=== PATIENT | male | born 1945 | race Caucasian/White ===

== ENCOUNTER 2019-09-02 06:36 | Emergency (ER) | payer OTHER ==
[2019-09-02] MEDS ORDERED: TETANUS & DIPHTHERIA TOX,ADULT 0.5 ML VIAL ONE (06:45)
--- NOTE | 2019-09-02 07:32 | ER ---
Nurse's Notes [facility] Name: Ten Hodge Age: 74 yrs Sex: Male : 1945 Arrival Date: 09/02/2019 Time: 06:37 Bed 5 Private MD: Diagnosis: Laceration without foreign body of left thumb without damage to nail Presentation: 09/02 06:36 Presenting complaint: Patient states: that yesterday at 1000 he was trying to cut fc something with a knife and cut his left thumb. He thought it would stop bleeding but it has not even with pressure dressing. Transition of care: patient was not received from another setting of care. Complicating Factors: There are no complicating factors for this patient. Onset of symptoms was September 01, 2019 at 10:00. Risk Assessment: Do you want to hurt yourself or someone else? Patient reports no desire to harm self or others. Initial Sepsis Screen:. Care prior to arrival: Bleeding of injury controlled. Injury dressed. 06:36 Method Of Arrival: Ambulatory fc 06:36 Acuity: HO 4 fc 07:00 Initial Sepsis Screen: Does the patient meet any 2 criteria? No. Patient's initial jl7 sepsis screen is negative. Does the patient have a suspected source of infection? No. Patient's initial sepsis screen is negative. Historical: - Allergies: 06:56 Exelon; fc - Home Meds: 06:56 omeprazole 20 mg Oral cpDR 1 cap once daily [Active]; calcium citrate 250 mg calcium fc Oral tab 630 mg twice a day [Active]; levothyroxine 137 mcg tab 1 tab once daily [Active]; metoprolol tartrate 50 mg oral tab 1 tab 2 times per day [Active]; aspirin 81 mg Oral chew 1 tab once daily [Active]; donepezil 10 mg Oral tab 1 tab once daily [Active]; bumetanide 1 mg Oral tab 3 tabs once daily [Active]; ferrous gluconate 324 mg (36 mg iron) Oral tab twice a day [Active]; amlodipine 10 mg tab 1 tab once daily [Active]; atorvastatin 80 mg Oral tab 1 tab once daily [Active]; bumetanide 1 mg Oral tab 2 tabs nightly [Active]; - PMHx: 06:56 cardiac arrest; COPD; High Cholesterol; Hypertension; Diabetes - IDDM; Myocardial fc infarction; Hypothyroidism; RENAL FAILURE; GERD; - PSHx: 06:56 penile pump; Knee surgery; Appendectomy; left foot; Quad bypass; fc - Immunization history:: Last tetanus immunization: unknown. - Social history:: Smoking status: Patient/guardian denies using tobacco, Patient/guardian denies using alcohol, street drugs. - Ebola Screening: : Patient negative for fever greater than or equal to 101.5 degrees Fahrenheit, and additional compatible Ebola Virus Disease symptoms Patient denies exposure to infectious person Patient denies travel to an Ebola-affected area in the 21 days before illness onset. Screenin:40 Abuse screen: Denies threats or abuse. Nutritional screening: No deficits noted. fc Tuberculosis screening: No symptoms or risk factors identified. Fall Risk None identified. Assessment: 06:53 General: Appears in no apparent distress. Behavior is calm, cooperative. Pain: ak1 Complains of pain in palmar aspect of distal phalanx of left thumb. Neuro: Level of Consciousness is awake, alert, obeys commands, Oriented to person, place, situation, Gait is steady, Speech is normal. Cardiovascular: No deficits noted. Respiratory: Airway is patent Respiratory effort is even, unlabored. GI: No signs and/or symptoms were reported involving the gastrointestinal system. : No signs and/or symptoms were reported regarding the genitourinary system. EENT: No signs and/or symptoms were reported regarding the EENT system. Derm: Wound noted palmar aspect of distal phalanx of left thumb. Musculoskeletal: Range of motion: intact in all extremities. Injury Description: Laceration is clean, bleeding moderately, bleeding if no dressing is applied. was sustained 12-24 hours ago. 07:05 Reassessment: Patient appears in no apparent distress at this time. Patient and/or ch family updated on plan of care and expected duration. Pain level reassessed. Patient is alert, oriented x 3, equal unlabored respirations, skin warm/dry/pink. 07:25 Reassessment: pressure dressing removed, per ROGER Klein verbal order. No bleeding jl7 noted. Vital Signs: 06:36 Weight 77.11 kg (R); Height 5 ft. 10 in. (177.80 cm) (R); Pain 3/10; fc 06:53 BP 129 / 65; Pulse 54; Resp 16; Temp 97.6(TE); Pulse Ox 99% on R/A; ak1 07:25 BP 111 / 64; Pulse 56; Resp 16 S; Pulse Ox 100% on R/A; Pain 0/10; jl7 06:36 Body Mass Index 24.39 (77.11 kg, 177.80 cm) ED Course: 06:36 Arm band placed on Patient placed in an exam room, on a stretcher. 06:37 Patient arrived in ED. ds1 06:38 Ernie Cook NP is PHCP. pm1 06:38 Andi Jacobs MD is Attending Physician. pm1 06:40 Patient has correct armband on for positive identification. Bed in low position. Call light in reach. Side rails up X 1. Pulse ox on. NIBP on. 06:47 Triage completed. 06:55 Wound care: to laceration located on left thumb was cleaned with Hibiclens, irrigated rr5 with normal saline, dressed with steri strip. 07:00 Virgil Buck RN is Primary Nurse. 7 07:36 No provider procedures requiring assistance completed. Patient did not have IV access jl7 during this emergency room visit. Administered Medications: 07:00 Drug: Tetanus-Diphtheria Toxoid Adult 0.5 ml {Mathematics Academic Chair: AFAR. Exp: rr5 04/05/2021. Lot #: [id number]. } Route: IM; Site: right deltoid; 07:15 Follow up: Response: No adverse reaction jl7 Outcome: 07:31 Discharge ordered by MD. pm1 07:36 Discharged to home ambulatory. jl7 07:36 Condition: stable 07:36 Discharge instructions given to patient, Instructed on discharge instructions, follow up and referral plans. medication usage, wound care, Demonstrated understanding of instructions, follow-up care, medications, wound care. 07:39 Patient left the ED. jl7 Signatures: Karma Cortez, [place] RN Yessica Palacios RN RN Mary Peace ds1 Harriet Alamo RN RN ak1 Ernie Cook, ROGER PRINCIPAL SYSTEM SOFTWARE ENGINEER pm1 Virgil Buck RN RN jl7 Sukumar Melton RN RN rr5 Corrections: (The following items were deleted from the chart) 07:38 07:05 Karma Cortez RN is Primary Nurse. [facility]7 07:38 07:37 Virgil Buck RN is Primary Nurse. jl7 jl7
--- NOTE | 2019-09-02 07:33 | EDPHYS ---
Physician Documentation [facility] Name: Ten Hodge Age: 74 yrs Sex: Male : 1945 Arrival Date: 09/02/2019 Time: 06:37 Bed 5 Private MD: Andi Art HPI: 09/02 07:06 This 74 yrs old Male presents to ER via Ambulatory with complaints of pm1 Laceration - Thumb. 07:06 The patient or guardian reports a laceration. The complaints affect the left thumb. pm1 Context: The problem was sustained at home, resulted from cutting food. Onset: The symptoms/episode began/occurred yesterday morning at 1000. Modifying factors: The symptoms are alleviated by pressure to area, the symptoms are aggravated by changing dressing. Associated signs and symptoms: Pertinent negatives: cyanosis distally, decreased sensation distally, fever, numbness distally, tingling distally. Patient was cutting food yesterday morning around 1000 and he accidentally cut his left thumb. Patient thought the bleeding would have stopped by now. Pressure dressing with Coban at home works but when he changes the dressing it starts bleeding again. Historical: - Allergies: 06:56 Exelon; fc - Home Meds: 06:56 omeprazole 20 mg Oral cpDR 1 cap once daily [Active]; calcium citrate 250 mg calcium fc Oral tab 630 mg twice a day [Active]; levothyroxine 137 mcg tab 1 tab once daily [Active]; metoprolol tartrate 50 mg oral tab 1 tab 2 times per day [Active]; aspirin 81 mg Oral chew 1 tab once daily [Active]; donepezil 10 mg Oral tab 1 tab once daily [Active]; bumetanide 1 mg Oral tab 3 tabs once daily [Active]; ferrous gluconate 324 mg (36 mg iron) Oral tab twice a day [Active]; amlodipine 10 mg tab 1 tab once daily [Active]; atorvastatin 80 mg Oral tab 1 tab once daily [Active]; bumetanide 1 mg Oral tab 2 tabs nightly [Active]; - PMHx: 06:56 cardiac arrest; COPD; High Cholesterol; Hypertension; Diabetes - IDDM; Myocardial fc infarction; Hypothyroidism; RENAL FAILURE; GERD; - PSHx: 06:56 penile pump; Knee surgery; Appendectomy; left foot; Quad bypass; fc - Immunization history:: Last tetanus immunization: unknown. - Social history:: Smoking status: Patient/guardian denies using tobacco, Patient/guardian denies using alcohol, street drugs. - Ebola Screening: : Patient negative for fever greater than or equal to 101.5 degrees Fahrenheit, and additional compatible Ebola Virus Disease symptoms Patient denies exposure to infectious person Patient denies travel to an Ebola-affected area in the 21 days before illness onset. ROS: 07:06 Constitutional: Negative for fever, chills, and weight loss, Cardiovascular: Negative pm1 for chest pain, palpitations, and edema, Respiratory: Negative for shortness of breath, cough, wheezing, and pleuritic chest pain, Back: Negative for injury and pain, MS/Extremity: Negative for injury and deformity. 07:06 Neuro: Negative for headache, weakness, numbness, tingling, and seizure. 07:06 Skin: Positive for laceration(s), of the left thumb. Exam: 07:06 Constitutional: This is a well developed, well nourished patient who is awake, alert, pm1 and in no acute distress. Head/Face: Normocephalic, atraumatic. Neck: Trachea midline, no thyromegaly or masses palpated, and no cervical lymphadenopathy. Supple, full range of motion without nuchal rigidity, or vertebral point tenderness. No Meningismus. Chest/axilla: Normal chest wall appearance and motion. Nontender with no deformity. No lesions are appreciated. Cardiovascular: Regular rate and rhythm with a normal S1 and S2. No gallops, murmurs, or rubs. Normal PMI, no JVD. No pulse deficits. Respiratory: Lungs have equal breath sounds bilaterally, clear to auscultation and percussion. No rales, rhonchi or wheezes noted. No increased work of breathing, no retractions or nasal flaring. Back: No spinal tenderness. No costovertebral tenderness. Full range of motion. 07:06 Skin: Appearance: normal except for affected area, injury, laceration(s), the wound is approximately 1 cm(s), with a depth of 0.25 cm(s), of the medial aspect of left thumb. 07:06 Neuro: Orientation: is normal, Motor: moves all fours, Sensation: is normal, no obvious gross deficits, Gait: is steady, at a normal pace, without difficulty. Vital Signs: 06:36 Weight 77.11 kg (R); Height 5 ft. 10 in. (177.80 cm) (R); Pain 3/10; fc 06:53 BP 129 / 65; Pulse 54; Resp 16; Temp 97.6(TE); Pulse Ox 99% on R/A; ak1 07:25 BP 111 / 64; Pulse 56; Resp 16 S; Pulse Ox 100% on R/A; Pain 0/10; jl7 06:36 Body Mass Index 24.39 (77.11 kg, 177.80 cm) fc MDM: 06:44 Patient medically screened. pm1 07:29 Data reviewed: vital signs. Data interpreted: Pulse oximetry: on room air is 99 %. pm1 Interpretation: normal. Counseling: I had a detailed discussion with the patient and/or guardian regarding: the historical points, exam findings, and any diagnostic results supporting the discharge/admit diagnosis, the need for outpatient follow up, to return to the emergency department if symptoms worsen or persist or if there are any questions or concerns that arise at home. 07:29 ED course: Laceration is too old to repair due to risk for infection. Flexible pm1 Steri-Strip stopped the bleeding. 09/02 06:45 Order name: Wound Care; Complete Time: 07:04 pm1 Administered Medications: 07:00 Drug: Tetanus-Diphtheria Toxoid Adult 0.5 ml {Master Carpenter: Hele Massage. Exp: rr5 04/05/2021. Lot #: [id number]. } Route: IM; Site: right deltoid; 07:15 Follow up: Response: No adverse reaction jl7 Disposition: 09/02/19 07:31 Discharged to Home. Impression: Laceration without foreign body of left thumb without damage to nail. - Condition is Stable. - Discharge Instructions: Nonsutured Laceration Care. - Prescriptions for Keflex 500 mg Oral Capsule - take 1 capsule by ORAL route every 12 hours for 10 days; 20 capsule. - Medication Reconciliation Form, Thank You Letter, Antibiotic Education, Prescription Opioid Use form. - Follow up: Emergency Department; When: As needed; Reason: Worsening of condition. Follow up: Private Physician; When: 2 - 3 days; Reason: Recheck today's complaints, Continuance of care, Re-evaluation by your physician. - Problem is new. - Symptoms have improved. Addendum: 09/03/2019 07:57 Co-signature as Attending Physician, Andi Jacobs MD I agree with the assessment and c paula plan of care. Signatures: Andi Jacobs MD MD cha Chretien, Felicia, RN RN Ernie Moura, MYCOLOGY TEACHER MYCOLOGY TEACHER pm1 Virgil Buck RN RN jl7 Sukumar Melton RN RN rr5 Corrections: (The following items were deleted from the chart) 09/02 07:39 07:31 09/02/2019 07:31 Discharged to Home. Impression: Laceration without foreign body jl7 of left thumb without damage to nail. Condition is Stable. Forms are Medication Reconciliation Form, Thank You Letter, Antibiotic Education, Prescription Opioid Use. Follow up: Emergency Department; When: As needed; Reason: Worsening of condition. Follow up: Private Physician; When: 2 - 3 days; Reason: Recheck today's complaints, Continuance of care, Re-evaluation by your physician. Problem is new. Symptoms have improved. pm1
[2019-09-02 07:48] VITALS: TEMP 97.6
[2019-09-02 07:49] VITALS: BP 111/64; O2SAT 100
== END 2019-09-02 07:39 | disposition home or self-care (01) ==
LOC: ER 06:36
DX: S61.012A Laceration without foreign body of left thumb without damage to nail, initial encounter (principal); W26.0XXA Contact with knife, initial encounter; Y93.9 Activity, unspecified; Y92.9 Unspecified place or not applicable; Z23 Encounter for immunization
CPT/HCPCS: 90471; 90714; 99284

== ENCOUNTER 2020-08-20 16:59 | Emergency (ER) | payer OTHER ==
--- OUTSIDE RECORDS SUMMARY | 2020-08-20 17:01 | XMS REPORT | Continuity of Care Document ---
:1945 Author Organization [facility] t Address [address] [place] [address] [address] [place] [address] Care Team Providers Name Role Phone Terence Hernandez MD Attending Clinician Problems This patient has no known problems. Allergies, Adverse Reactions, Alerts This patient has no known allergies or adverse reactions. Medications This patient has no known medications. Procedures This patient has no known procedures. Encounters Start End Encounter Admission Attending Care Care Encounter Source Date/Time Date/Time Type Type Clinicians Facility Department ID 2019-11-30 2019-11-30 Office ROBBIN Hernandez [id number] 08:52:00 09:25:16 Visit [facility] [id number] Surgical [id number] Specialti [id number] [address] Results This patient has no known results.
[2020-08-20 17:58] LABS: Absolute Lymphocytes (CBC) 1.1 K/uL (0.7-4.9); Basophils % 0.9 % (0-1.3); Hematocrit 30.9 % (39.6-49.0); Lymphocytes % 18.2 % (15.3-44.8); MPV 8.2 fL (7.6-11.3); RBC Red Blood Cell Count 3.29 M/uL (4.33-5.43)
[2020-08-20 18:00] LABS: Arterial Blood Carboxyhemoglob 1.5 % (0-1.5); Blood Gas Oxyhemoglobin 89.5 % (94-97)
[2020-08-20] MEDS ORDERED: NA CHLORIDE 0.9% 1,000 ML ONE (18:08)
[2020-08-20] MEDS ORDERED: INSULIN -REGULAR HUMAN 50 UNIT/0.5 ML ML ONE ×2 (18:08→19:40)
[2020-08-20 18:23] LABS: Potassium 4.5 mmol/L (3.5-5.1)
[2020-08-20 20:26] LABS: Urine Blood TRACE (NEG); Urine Glucose 2+ (NEG); Urine Protein NEGATIVE (NEG); Urine pH 5.5 (5.0-7.0)
--- NOTE | 2020-08-20 20:47 | ER ---
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 Took a total 50 units insulin since last night, and has not eaten much today. Woke up this morning feeling bad, dizzy, nauseous. Feeling better right now. No complains of pain, N/V at this time. BGL 460 in triage. Coronavirus screen: Client denies travel out of the [place] in the last 14 days. nausea, Client presents with at least one sign or symptom that may indicate coronavirus-19. Standard/surgical mask placed on the client. Provider contacted for isolation considerations. The client reports previous COVID testing was negative. Date of collection: July 2020. Ebola Screen: Patient negative for fever greater than or equal to 101.5 degrees Fahrenheit, and additional compatible Ebola Virus Disease symptoms Patient denies exposure to infectious person. Patient denies travel to an Ebola-affected area in the 21 days before illness onset. No symptoms or risks identified at this time. Initial Sepsis Screen: Does the patient meet any 2 criteria? No. Patient's initial sepsis screen is negative. Does the patient have a suspected source of infection? No. Patient's initial sepsis screen is negative. Risk Assessment: Do you want to hurt yourself or someone else? Patient reports no desire to harm self or others. Onset of symptoms was August 20, 2020. 17:14 Method Of Arrival: Ambulatory ca1 17:14 Acuity: HO 3 ca1 Historical: - Allergies: 17:25 Exelon; ca1 - Home Meds: 17:25 amlodipine 10 mg tab 1 tab once daily [Active]; aspirin 81 mg Oral chew 1 tab once ca1 daily [Active]; donepezil 10 mg Oral tab 1 tab once daily [Active]; atorvastatin 80 mg Oral tab 1 tab once daily [Active]; bumetanide 1 mg Oral tab 3 tabs once daily [Active]; bumetanide 1 mg Oral tab 2 tabs nightly [Active]; calcium citrate 250 mg calcium Oral tab 630 mg twice a day [Active]; ferrous gluconate 10 gm Oral tab twice a day [Active]; Lisinopril Oral [Active]; levothyroxine 137 mcg tab 1 tab once daily [Active]; metoprolol tartrate 50 mg Oral tab 1 tab 2 times per day [Active]; omeprazole 20 mg Oral cpDR 1 cap once daily [Active]; divalproex oral 7500mg oral [Active]; fluoxetine 20 mg Oral cap [Active]; insulin Pump [Active]; Humulin R 100 unit/mL Sub-Q soln [Active]; - PMHx: 17:25 cardiac arrest; COPD; Diabetes - IDDM; GERD; High Cholesterol; Hypertension; ca1 Hypothyroidism; Myocardial infarction; RENAL FAILURE; - PSHx: 17:25 penile pump; Knee surgery; Appendectomy; left foot; Quad bypass; back surgery; ca1 - Immunization history:: Adult Immunizations up to date, Pneumococcal vaccine is up to date, Flu vaccine is up to date. - Social history:: Smoking status: Patient/guardian denies using tobacco, the patient reports quitting approximately 12 years ago. Screenin:30 Abuse screen: Denies threats or abuse. Nutritional screening: No deficits noted. aa5 Tuberculosis screening: No symptoms or risk factors identified. Fall Risk None identified. Assessment: 17:30 General: Appears comfortable, Behavior is calm, cooperative. Pain: Denies pain. Neuro: aa5 Level of Consciousness is awake, alert, obeys commands, Oriented to person, place, time, situation. Cardiovascular: Heart tones S1 S2 present Rhythm is regular. Respiratory: Airway is patent Respiratory effort is even, unlabored, Respiratory pattern is regular, symmetrical. GI: Abdomen is round non-distended, Bowel sounds present X 4 quads. Abd is soft and non tender X 4 quads. : No signs and/or symptoms were reported regarding the genitourinary system. EENT: No signs and/or symptoms were reported regarding the EENT system. Derm: Skin is pink, warm \T\ dry. Musculoskeletal: Range of motion: intact in all extremities. 18:55 Reassessment: Patient is alert, oriented x 3, equal unlabored respirations, skin aa5 warm/dry/pink. Patient denies pain at this time. Pt sitting up in bed. Awaiting disposition. . 19:28 General: Appears comfortable, Behavior is calm, cooperative. Pain: Denies pain. Neuro: rv Level of Consciousness is awake, alert, obeys commands, Oriented to person, place, time, situation. Cardiovascular: Rhythm is sinus bradycardia. Respiratory: Airway is patent Respiratory effort is even, unlabored, Respiratory pattern is regular, Breath sounds are clear bilaterally. 20:37 Reassessment: Patient appears in no apparent distress at this time. Patient and/or mg2 family updated on plan of care and expected duration. Pain level reassessed. Patient is alert, oriented x 3, equal unlabored respirations, skin warm/dry/pink. Vital Signs: 17:14 BP 144 / 67; Pulse 59; Resp 16 S; Temp 97.1(TE); Pulse Ox 96% on R/A; Weight 77.11 kg ca1 (R); Height 5 ft. 10 in. (177.80 cm) (R); Pain 0/10; 19:28 BP 116 / 61; Pulse 51; Resp 15; Pulse Ox 96% on R/A; rv 20:37 BP 119 / 65; Pulse 54; Resp 18; Pulse Ox 97% on R/A; mg2 17:14 Body Mass Index 24.39 (77.11 kg, 177.80 cm) ca1 ED Course: 17:01 Patient arrived in ED. as 17:19 Triage completed. ca1 17:25 Arm band placed on right wrist. ca1 17:30 Riky Wellington PA is PHCP. m 17:30 Andi Jacobs MD is Attending Physician. [facility] 17:30 Antonia Gibson, RN is Primary Nurse. aa5 17:30 Patient has correct armband on for positive identification. Placed in gown. Bed in low aa5 position. Call light in reach. Side rails up X2. Adult w/ patient. Pulse ox on. NIBP on. 17:45 Initial lab(s) drawn, by me, sent to lab. Inserted saline lock: 20 gauge in right aa5 forearm, using aseptic technique. Blood collected. 18:58 Report given to [place] Cam[place]. aa5 19:49 Primary Nurse role handed off by Antonia Gibson, [place] ll2 20:03 Marquise Delcid RN is Primary Nurse. rv 20:50 No provider procedures requiring assistance completed. IV discontinued, intact, rv bleeding controlled, No redness/swelling at site. Pressure dressing applied. Administered Medications: 18:09 Drug: NS 0.9% 1000 ml Route: IV; Rate: 1 bolus; Site: right forearm; aa5 19:43 Follow up: IV Status: Completed infusion; IV Intake: 1000ml rv 18:09 Drug: Insulin Regular Human 10 units {Co-Signature: aa5 (Antonia Gibson RN).} Route: iw IVP; Site: right forearm; 19:43 Follow up: Response: Medication administered at discharge. rv 18:09 Drug: Insulin Regular Human 10 units {Co-Signature: aa5 (Antonia Gibson RN).} Route: iw Sub-Q; Site: right lower abdomen; 19:43 Follow up: Response: No adverse reaction; Blood sugar is lowered rv 19:30 Drug: Insulin Regular Human 10 units {Co-Signature: mg2 (Amilcar Jimenez RN).} Route: rv IVP; Site: right wrist; 20:12 Follow up: Response: No adverse reaction; Blood sugar is lowered mg2 Point of Care Testing: Blood Glucose: 18:54 Blood Glucose: 338 mg/dL; aa5 18:54 PA notified of decreased FSBG aa5 Ranges: Intake: 19:43 IV: 1000ml; Total: 1000ml. rv Outcome: 20:47 Discharge ordered by . [facility] 20:50 Discharged to home ambulatory, with family. rv 20:50 Condition: improved 20:50 Discharge instructions given to patient, Instructed on discharge instructions, follow up and referral plans. Demonstrated understanding of instructions, follow-up care. 20:55 Discharge ordered by MD. [facility] 20:58 Patient left the ED. rv Signatures: Riky Wellington, PA PA Nolvia Simeon Irene RN Antonia Mendoza RN RN aa5 Amilcar Jimenez RN RN mg2 Marquise Delcid RN [place] rv Giulia Pollack RN [place] [facility] Yue Gallardo RN RN ll2 Antonia Gibson RN aa5 Amilcar Jimenez RN mg2 Corrections: (The following items were deleted from the chart) 19:29 19:28 Cardiovascular: Rhythm is sinus rhythm rv rv
--- NOTE | 2020-08-20 20:47 | EDPHYS ---
Physician Documentation [facility] Name: Ten Hodge Age: 75 yrs Sex: Male : 1945 Arrival Date: 08/20/2020 Time: 17:01 Bed 5 Private MD: ED Physician Andi Jacobs HPI: 08/20 17:32 This 75 yrs old Male presents to ER via Ambulatory with complaints of High jmm Blood Sugar. 17:32 The patient or guardian reports hyperglycemia. Onset: The symptoms/episode jmm began/occurred last night. Associated signs and symptoms: Pertinent negatives: urinary incontinence, vomiting. This is a 75 year old male with a history of DM,GERD, CAD that presents to the ED with complaints of hyperglycemia which he noticed after not feeling well last night. Patient states he had dinner at a steakhouse earlier in the day. Denies vomiting. Patient has taken 50 units of insulin sub q without relief. . Historical: - Allergies: 17:25 Exelon; ca1 - Home Meds: 17:25 amlodipine 10 mg tab 1 tab once daily [Active]; aspirin 81 mg Oral chew 1 tab once ca1 daily [Active]; donepezil 10 mg Oral tab 1 tab once daily [Active]; atorvastatin 80 mg Oral tab 1 tab once daily [Active]; bumetanide 1 mg Oral tab 3 tabs once daily [Active]; bumetanide 1 mg Oral tab 2 tabs nightly [Active]; calcium citrate 250 mg calcium Oral tab 630 mg twice a day [Active]; ferrous gluconate 10 gm Oral tab twice a day [Active]; Lisinopril Oral [Active]; levothyroxine 137 mcg tab 1 tab once daily [Active]; metoprolol tartrate 50 mg Oral tab 1 tab 2 times per day [Active]; omeprazole 20 mg Oral cpDR 1 cap once daily [Active]; divalproex oral 7500mg oral [Active]; fluoxetine 20 mg Oral cap [Active]; insulin Pump [Active]; Humulin R 100 unit/mL Sub-Q soln [Active]; - PMHx: 17:25 cardiac arrest; COPD; Diabetes - IDDM; GERD; High Cholesterol; Hypertension; ca1 Hypothyroidism; Myocardial infarction; RENAL FAILURE; - PSHx: 17:25 penile pump; Knee surgery; Appendectomy; left foot; Quad bypass; back surgery; ca1 - Immunization history:: Adult Immunizations up to date, Pneumococcal vaccine is up to date, Flu vaccine is up to date. - Social history:: Smoking status: Patient/guardian denies using tobacco, the patient reports quitting approximately 12 years ago. ROS: 17:32 Cardiovascular: Negative for chest pain, palpitations, and edema, Respiratory: Negative jmm for shortness of breath, cough, wheezing, and pleuritic chest pain, Neuro: Negative for headache, weakness, numbness, tingling, and seizure. 17:32 Constitutional: Positive for fatigue. 17:32 All other systems are negative. Exam: 17:32 Constitutional: This is a well developed, well nourished patient who is awake, alert, jmm and in no acute distress. Head/Face: atraumatic. Eyes: EOMI, no conjunctival erythema appreciated ENT: Moist Mucus Membranes Neck: Trachea midline, Supple Chest/axilla: Normal chest wall appearance and motion. Cardiovascular: Regular rate and rhythm. No edema appreciated Respiratory: Normal respirations, no respiratory distress appreciated Abdomen/GI: Non distended, soft Back: Normal ROM Skin: General appearance color normal MS/ Extremity: Moves all extremities, no obvious deformities appreciated, no edema noted to the lower extremities Neuro: Awake and alert, normal gait Psych: Behavior is normal, Mood is normal, Patient is cooperative and pleasant Vital Signs: 17:14 BP 144 / 67; Pulse 59; Resp 16 S; Temp 97.1(TE); Pulse Ox 96% on R/A; Weight 77.11 kg ca1 (R); Height 5 ft. 10 in. (177.80 cm) (R); Pain 0/10; 19:28 BP 116 / 61; Pulse 51; Resp 15; Pulse Ox 96% on R/A; rv 20:37 BP 119 / 65; Pulse 54; Resp 18; Pulse Ox 97% on R/A; mg2 17:14 Body Mass Index 24.39 (77.11 kg, 177.80 cm) ca1 MDM: 17:33 Patient medically screened. lisa 20:46 Data reviewed: vital signs, nurses notes. Counseling: I had a detailed discussion with jojo the patient and/or guardian regarding: the historical points, exam findings, and any diagnostic results supporting the discharge/admit diagnosis, lab results, the need for outpatient follow up, to return to the emergency department if symptoms worsen or persist or if there are any questions or concerns that arise at home. 20:52 Data reviewed: lab test result(s). [facility] 08/20 17:26 Order name: Glucose, Ancillary Testing; Complete Time: 17:32 EDMS 08/20 17:34 Order name: CBC with Diff; Complete Time: 18:09 [facility] 08/20 17:34 Order name: BMP; Complete Time: 18:53 [facility] 08/20 17:34 Order name: ABG; Complete Time: 18:31 [facility] 08/20 18:09 Order name: Glucose, Ancillary Testing; Complete Time: 18:09 EDMS 08/20 18:29 Order name: Urine Dipstick--Ancillary (enter results); Complete Time: 20:46 08/20 17:34 Order name: Urine Dipstick-Ancillary (obtain specimen); Complete Time: 18:17 [facility] 08/20 19:06 Order name: Glucose, Ancillary Testing; Complete Time: 19:11 EDMS 08/20 19:56 Order name: Glucose Level; Complete Time: 20:12 [facility] 08/20 20:18 Order name: Glucose, Ancillary Testing; Complete Time: 20:46 EDMS Administered Medications: 18:09 Drug: NS 0.9% 1000 ml Route: IV; Rate: 1 bolus; Site: right forearm; aa5 19:43 Follow up: IV Status: Completed infusion; IV Intake: 1000ml rv 18:09 Drug: Insulin Regular Human 10 units {Co-Signature: aa5 (Antonia Gibson RN).} Route: iw IVP; Site: right forearm; 19:43 Follow up: Response: Medication administered at discharge. rv 18:09 Drug: Insulin Regular Human 10 units {Co-Signature: aa5 (Antonia Gibson RN).} Route: iw Sub-Q; Site: right lower abdomen; 19:43 Follow up: Response: No adverse reaction; Blood sugar is lowered rv 19:30 Drug: Insulin Regular Human 10 units {Co-Signature: mg2 (Amilcar Jimenez RN).} Route: rv IVP; Site: right wrist; 20:12 Follow up: Response: No adverse reaction; Blood sugar is lowered mg2 Point of Care Testing: Blood Glucose: 18:54 Blood Glucose: 338 mg/dL; aa5 18:54 PA notified of decreased FSBG aa5 Ranges: Critical Glucose Levels:Adult <50 mg/dl or >400 mg/dl <40 mg/dl or >180 mg/dl Disposition: 08/21 10:47 Co-signature as Attending Physician, Andi Jacobs MD I agree with the assessment and lisa plan of care. Disposition: 08/20/20 20:55 Discharged to Home. Impression: Hyperglycemia, unspecified. - Condition is Stable. - Discharge Instructions: Hyperglycemia. - Medication Reconciliation Form, Thank You Letter, Antibiotic Education, Prescription Opioid Use form. - Follow up: Private Physician; When: 2 - 3 days; Reason: Recheck today's complaints, Continuance of care, Re-evaluation by your physician. Signatures: Dispatcher [employer] EDAndi Higgins MD MD cha Mickail, Joel, PA PA jmm Williams, Irene, RN [place] iw Antonia Gibson RN RN aa5 Marquise Delcid RN RN rv [place], [place] Platt RN, Michele RN mg2 Antonia Gibson RN aa5 Amilcar Jimenez RN mg2 Corrections: (The following items were deleted from the chart) 08/20 20:50 20:47 08/20/2020 20:47 Discharged to Home. Impression: Hyperglycemia, unspecified. rv Condition is Stable. Forms are Medication Reconciliation Form, Thank You Letter, Antibiotic Education, Prescription Opioid Use. Follow up: Private Physician; When: 2 - 3 days; Reason: Recheck today's complaints, Continuance of care, Re-evaluation by your physician. [facility] 20:58 20:55 08/20/2020 20:55 Discharged to Home. Impression: Hyperglycemia, unspecified. rv Condition is Stable. Discharge Instructions: Hyperglycemia. Forms are Medication Reconciliation Form, Thank You Letter, Antibiotic Education, Prescription Opioid Use. Follow up: Private Physician; When: 2 - 3 days; Reason: Recheck today's complaints, Continuance of care, Re-evaluation by your physician. [facility]
[2020-08-20 21:27] VITALS: TEMP 97.1
[2020-08-20 21:30] VITALS: BP 119/65; O2SAT 97
== END 2020-08-20 20:58 | disposition home or self-care (01) ==
LOC: ER 16:59
DX: E11.22 Type 2 diabetes mellitus with diabetic chronic kidney disease (principal); E11.65 Type 2 diabetes mellitus with hyperglycemia; I12.9 Hypertensive chronic kidney disease with stage 1 through stage 4 chronic kidney disease, or unspecified chronic kidney disease; N18.9 Chronic kidney disease, unspecified; J44.9 Chronic obstructive pulmonary disease, unspecified; I25.2 Old myocardial infarction; Z79.4 Long term (current) use of insulin; Z88.8 Allergy status to other drugs, medicaments and biological substances; Z96.41 Presence of insulin pump (external) (internal); Z79.82 Long term (current) use of aspirin
CPT/HCPCS: 85025; 80048; 36415; 82947 ×4; 81003; 82805; 96372; 99284; J7030

== ENCOUNTER 2020-08-21 08:04 | Observation (INO) | payer OTHER ==
[2020-08-21] MEDS ORDERED: INSULIN -REGULAR HUMAN 50 UNIT/0.5 ML ML ONE ×4 (09:00→15:50)
[2020-08-21 09:04] LABS: Potassium 5.3 mmol/L (3.5-5.1)
--- OUTSIDE RECORDS SUMMARY | 2020-08-21 09:21 | XMS REPORT | Continuity of Care Document ---
:1945 Author Organization [facility] t Address [address] [place] [address] [address] [place] [address] Care Team Providers Name Role Phone Terence [...] Department ID 2019-11-30 2019-11-30 Office ROBBIN Hernandez [phone] [id number] 08:52:00 09:25:16 Visit [facility] [id number] Surgical [id number] Specialti [id number] [address] Results This patient has no known results.
[2020-08-21] MEDS ORDERED: NA CHLORIDE 0.9% 500 ML ONE (09:50)
--- NOTE | 2020-08-21 11:41 | EDPHYS ---
Physician Documentation [facility] Name: Ten Hodge Age: 75 yrs Sex: Male : 1945 Arrival Date: 08/21/2020 Time: 08:06 Bed 4 Private MD: ED Physician Francis Martinez HPI: 08/21 10:08 This 75 yrs old Male presents to ER via Ambulatory with complaints of High kdr Blood Sugar. 10:08 The patient or guardian reports hyperglycemia, that was potentially precipitated by no kdr particular event. Onset: The symptoms/episode began/occurred this morning. Associated signs and symptoms: Pertinent positives: None. Pertinent negatives: constipation, decreased urine output, diaphoresis, diarrhea, dry skin, hair loss, ketones in urine, nausea, polydipsia, polyphagia. Current symptoms: In the emergency department the patient's symptoms are unchanged from the initial presentation, despite home interventions, despite EMS interventions. The patient has experienced similar episodes in the past, a few times, The patient was in the ED last night for the same problem. The patient has been recently seen at the [facility] Emergency Department, lat night. Historical: - Allergies: 08:22 Exelon; iw - Home Meds: 08: amlodipine 10 mg tab 1 tab once daily [Active]; aspirin 81 mg Oral chew 1 tab once iw daily [Active]; atorvastatin 80 mg Oral tab 1 tab once daily [Active]; bumetanide 1 mg Oral tab 3 tabs once daily [Active]; bumetanide 1 mg Oral tab 2 tabs nightly [Active]; calcium citrate 250 mg calcium Oral tab 630 mg twice a day [Active]; divalproex 7500mg Oral [Active]; donepezil 10 mg Oral tab 1 tab once daily [Active]; ferrous gluconate 10 gm Oral tab twice a day [Active]; fluoxetine 20 mg Oral cap [Active]; Humulin R 100 unit/mL soln [Active]; Insulin pump [Active]; levothyroxine 137 mcg tab 1 tab once daily [Active]; lisinopril Oral [Active]; metoprolol tartrate 50 mg Oral tab 1 tab 2 times per day [Active]; omeprazole 20 mg Oral cpDR 1 cap once daily [Active]; - PMHx: 08:22 cardiac arrest; COPD; Diabetes - IDDM; GERD; High Cholesterol; Hypertension; iw Hypothyroidism; Myocardial infarction; RENAL FAILURE; - PSHx: 08:22 penile pump; Knee surgery; Appendectomy; left foot; Quad bypass; back surgery; iw - Immunization history:: Adult Immunizations up to date. - Social history:: Smoking status: unknown. ROS: 10:10 Constitutional: Negative for fever, chills, and weight loss, Eyes: Negative for injury, kdr pain, redness, and discharge, ENT: Negative for injury, pain, and discharge, Neck: Negative for injury, pain, and swelling, Cardiovascular: Negative for chest pain, palpitations, and edema, Respiratory: Negative for shortness of breath, cough, wheezing, and pleuritic chest pain, Abdomen/GI: Negative for abdominal pain, nausea, vomiting, diarrhea, and constipation, Back: Negative for injury and pain, : Negative for injury, bleeding, discharge, and swelling, MS/Extremity: Negative for injury and deformity, Skin: Negative for injury, rash, and discoloration, Neuro: Negative for headache, weakness, numbness, tingling, and seizure activity. Psych: Negative for depression, anxiety, suicide ideation, homicidal ideation, and hallucinations, Allergy/Immunology: Negative for hives, rash, and allergies, Hematologic/Lymphatic: Negative for swollen nodes, abnormal bleeding, and unusual bruising. 10:10 Endocrine: Positive for Hyperglycemia. Exam: 10:11 Constitutional: This is a well developed, well nourished patient who is awake, alert, kdr and in no acute distress. Head/Face: Normocephalic, atraumatic. Eyes: Pupils equal round and reactive to light, extra-ocular motions intact. Lids and lashes normal. Conjunctiva and sclera are non-icteric and not injected. Cornea within normal limits. Periorbital areas with no swelling, redness, or edema. Neck: Trachea midline, no thyromegaly or masses palpated, and no cervical lymphadenopathy. Supple, full range of motion without nuchal rigidity, or vertebral point tenderness. No Meningismus. Chest/axilla: Normal chest wall appearance and motion. Nontender with no deformity. No lesions are appreciated. Cardiovascular: Regular rate and rhythm with a normal S1 and S2. No gallops, murmurs, or rubs. Normal PMI, no JVD. No pulse deficits. Respiratory: Lungs have equal breath sounds bilaterally, clear to auscultation and percussion. No rales, rhonchi or wheezes noted. No increased work of breathing, no retractions or nasal flaring. Abdomen/GI: Soft, non-tender, with normal bowel sounds. No distension or tympany. No guarding or rebound. No evidence of tenderness throughout. Back: No spinal tenderness. No costovertebral tenderness. Full range of motion. Skin: Warm, dry with normal turgor. Normal color with no rashes, no lesions, and no evidence of cellulitis. MS/ Extremity: Pulses equal, no cyanosis. Neurovascular intact. Full, normal range of motion. Neuro: Awake and alert, GCS 15, oriented to person, place, time, and situation. Cranial nerves II-XII grossly intact. Motor strength 5/5 in all extremities. Sensory grossly intact. Cerebellar exam normal. Normal gait. Psych: Awake, alert, with orientation to person, place and time. Behavior, mood, and affect are within normal limits. Vital Signs: 08:18 BP 137 / 67; Pulse 56; Resp 16; Temp 97.5; Pulse Ox 98% on R/A; iw 11:35 BP 129 / 61; Pulse 54; Resp 17; Pulse Ox 100% ; jl7 12:22 BP 124 / 62; Pulse 52; Resp 15; Pulse Ox 98% ; jl7 MDM: 11:40 Patient medically screened. kdr 11:40 Data reviewed: vital signs, nurses notes, lab test result(s). Counseling: I had a kdr detailed discussion with the patient and/or guardian regarding: the historical points, exam findings, and any diagnostic results supporting the discharge/admit diagnosis, lab results, the need for further work-up and treatment in the hospital. 08/21 08:19 Order name: Chem 7; Complete Time: 09:24 kdr 08/21 08:28 Order name: Glucose, Ancillary Testing; Complete Time: 09:24 EDMS 08/21 09:44 Order name: Glucose, Ancillary Testing; Complete Time: 09:54 EDMS 08/21 10:44 Order name: Glucose, Ancillary Testing EDMS 08/21 11:56 Order name: CBC with Automated Diff EDMS 08/21 11:56 Order name: CBC with Automated Diff EDMS 08/21 11:56 Order name: Comprehensive Metabolic Panel EDMS 08/21 11:56 Order name: Comprehensive Metabolic Panel EDMS 08/21 12:05 Order name: Glucose, Ancillary Testing EDMS 08/21 15:26 Order name: Glucose, Ancillary Testing EDMS 08/21 11:56 Order name: CONS Pharmacy Consult EDMS 08/21 11:56 Order name: Consistent Carb (ADA) [address]in EDMS Administered Medications: 08:47 Drug: Insulin Regular Human 10 units {Co-Signature: jl7 (Virgil Buck RN).} Route: IVP; iw Site: left hand; 09:43 Drug: Insulin Regular Human 10 units {Co-Signature: jl7 (Virgil Buck RN).} Route: IVP; iw Site: left hand; 09:43 Drug: NS 0.9% 500 ml Route: IV; Rate: bolus; Site: left hand; iw 11:08 Drug: Insulin Regular Human 6 units {Co-Signature: aa5 (Antonia Gibson RN).} Route: iw IVP; Site: left hand; 15:43 Not Given (Patient Refused): Insulin Regular Human 8 units Sub-Q once iw Disposition: 08/21/20 11:40 Hospitalization ordered by Pema Saleh for Observation. Preliminary diagnosis is Hyperglycemia, unspecified - Failed outpatient treatment. - Bed requested for Telemetry/MedSurg (observation). - Status is Observation. iw - Condition is Fair. - Problem is an ongoing problem. - Symptoms have improved. Signatures: Dispatcher [employer] EDAR Francis Martinez MD MD [facility] Geni Ramírez RN RN iw Faraz Arana em1 Virgil Buck RN jl7 Antonia Gibson RN aa5 Corrections: (The following items were deleted from the chart) 13:49 11:40 Hospitalization Ordered by Pema Saleh MD for Observation. Preliminary em1 diagnosis is Hyperglycemia, unspecified - Failed outpatient treatment. Bed requested for Telemetry/MedSurg (observation). Status is Observation. Condition is Fair. Problem is an ongoing problem. Symptoms have improved. kdr 15:43 13:49 08/21/2020 11:40 Hospitalization Ordered by Pema Saleh MD for Observation. iw Preliminary diagnosis is Hyperglycemia, unspecified - Failed outpatient treatment. Bed requested for Telemetry/MedSurg (observation). Status is Observation. Condition is Fair. Problem is an ongoing problem. Symptoms have improved. em1
--- NOTE | 2020-08-21 11:41 | ER ---
Nurse's Notes [facility] Name: Ten Hodge Age: 75 yrs Sex: Male : 1945 Arrival Date: 08/21/2020 Time: 08:06 Bed 4 Private MD: Diagnosis: Hyperglycemia, unspecified-Failed outpatient treatment Presentation: 08/21 08:18 Chief complaint: Patient states: was seen here last night for high blood sugar, was iw given insulin and sent home, he only ate a small amount last night and now his blood sugar is high again. Coronavirus screen: At this time, the client does not indicate any symptoms associated with coronavirus-19. Ebola Screen: Patient negative for fever greater than or equal to 101.5 degrees Fahrenheit, and additional compatible Ebola Virus Disease symptoms Patient denies exposure to infectious person. Patient denies travel to an Ebola-affected area in the 21 days before illness onset. No symptoms or risks identified at this time. Initial Sepsis Screen: Does the patient meet any 2 criteria? No. Patient's initial sepsis screen is negative. Does the patient have a suspected source of infection? No. Patient's initial sepsis screen is negative. Risk Assessment: Do you want to hurt yourself or someone else? Patient reports no desire to harm self or others. Onset of symptoms was August 21, 2020. 08:18 Method Of Arrival: Ambulatory iw 08:18 Acuity: HO 3 iw Historical: - Allergies: 08: Exelon; iw - Home Meds: 08:22 amlodipine 10 mg tab 1 tab once daily [Active]; aspirin 81 mg Oral chew 1 tab once iw daily [Active]; atorvastatin 80 mg Oral tab 1 tab once daily [Active]; bumetanide 1 mg Oral tab 3 tabs once daily [Active]; bumetanide 1 mg Oral tab 2 tabs nightly [Active]; calcium citrate 250 mg calcium Oral tab 630 mg twice a day [Active]; divalproex 7500mg Oral [Active]; donepezil 10 mg Oral tab 1 tab once daily [Active]; ferrous gluconate 10 gm Oral tab twice a day [Active]; fluoxetine 20 mg Oral cap [Active]; Humulin R 100 unit/mL soln [Active]; Insulin pump [Active]; levothyroxine 137 mcg tab 1 tab once daily [Active]; lisinopril Oral [Active]; metoprolol tartrate 50 mg Oral tab 1 tab 2 times per day [Active]; omeprazole 20 mg Oral cpDR 1 cap once daily [Active]; - PMHx: 08:22 cardiac arrest; COPD; Diabetes - IDDM; GERD; High Cholesterol; Hypertension; iw Hypothyroidism; Myocardial infarction; RENAL FAILURE; - PSHx: 08:22 penile pump; Knee surgery; Appendectomy; left foot; Quad bypass; back surgery; iw - Immunization history:: Adult Immunizations up to date. - Social history:: Smoking status: unknown. Screenin:42 Abuse screen: Denies threats or abuse. Denies injuries from another. Nutritional jl7 screening: No deficits noted. Tuberculosis screening: No symptoms or risk factors identified. 09:00 Fall Risk None identified. iw Assessment: 08:52 General: Appears in no apparent distress. Behavior is calm, cooperative. Pain: Denies iw pain. Neuro: Level of Consciousness is awake, alert, obeys commands, Oriented to person, place, time, situation, Moves all extremities. Full function. Cardiovascular: Patient's skin is warm and dry. Respiratory: Respiratory effort is even, unlabored, Respiratory pattern is regular, symmetrical. GI: Abdomen is non-distended. Derm: Skin is intact, is fragile. Musculoskeletal: Range of motion: limited in all extremities. 10:00 Reassessment: Patient appears in no apparent distress at this time. Patient and/or iw family updated on plan of care and expected duration. Pain level reassessed. Patient is alert, oriented x 3, equal unlabored respirations, skin warm/dry/pink. 11:25 Reassessment: Patient appears in no apparent distress at this time. Patient and/or iw family updated on plan of care and expected duration. Pain level reassessed. Patient is alert, oriented x 3, equal unlabored respirations, skin warm/dry/pink. Dr. Saleh at bedside, pt will be admitted. 15:24 Reassessment: pt is refusing to be admitted, wishes to speak to the hospitalist. iw Vital Signs: 08:18 BP 137 / 67; Pulse 56; Resp 16; Temp 97.5; Pulse Ox 98% on R/A; iw 11:35 BP 129 / 61; Pulse 54; Resp 17; Pulse Ox 100% ; jl7 12:22 BP 124 / 62; Pulse 52; Resp 15; Pulse Ox 98% ; jl7 ED Course: 08:06 Patient arrived in ED. as 08:12 Geni Ramírez, RN is Primary Nurse. iw 08:12 Francis Martinez MD is Attending Physician. kdr 08:15 Initial lab(s) drawn, by me, sent to lab. Inserted saline lock: 20 gauge in left hand, iw using aseptic technique. 08:20 Triage completed. iw 08:20 Arm band placed on. iw 08:42 Patient has correct armband on for positive identification. Bed in low position. Call jl7 light in reach. Side rails up X 1. Pulse ox on. NIBP on. 11:39 Pema Saelh MD is Hospitalizing Provider. kdr 15:41 No provider procedures requiring assistance completed. IV discontinued, intact, iw bleeding controlled, No redness/swelling at site. Pressure dressing applied. Administered Medications: 08:47 Drug: Insulin Regular Human 10 units {Co-Signature: jl7 (Virgil Buck RN).} Route: IVP; iw Site: left hand; 09:43 Drug: Insulin Regular Human 10 units {Co-Signature: jl7 (Virgil Buck RN).} Route: IVP; iw Site: left hand; 09:43 Drug: NS 0.9% 500 ml Route: IV; Rate: bolus; Site: left hand; iw 11:08 Drug: Insulin Regular Human 6 units {Co-Signature: aa5 (Antonia Gibson RN).} Route: iw IVP; Site: left hand; 15:43 Not Given (Patient Refused): Insulin Regular Human 8 units Sub-Q once iw Outcome: 11:40 Decision to Hospitalize by Provider. kdr 15:42 Admitted to Report called to gave report to [place] Moe. Pt refused to be transported iw to second floor, stated he wants to go to [place], called Dr. Saleh who spoke with pt. Pt signed out AMA 15:42 Condition: good 15:42 Instructed on the need for admit. 15:43 Patient left the ED. iw Signatures: Francis Martinez MD MD kdr Nolvia Arana as Geni Ramírez, RN RN iw Virgil Buck RN RN jl7 Virgil Buck RN jl7 Antonia Gibson RN aa5
[2020-08-21] MEDS ORDERED: ONDANSETRON 4 MG/2 ML VIAL IV PRN (11:53)
[2020-08-21] MEDS ORDERED: ACETAMINOPHEN 500 MG TAB PO PRN (11:53)
[2020-08-21] MEDS ORDERED: D50W 25 GM/50 ML SYRINGE/VIAL IV PRN (11:56)
[2020-08-21] MEDS ORDERED: GLUCAGON 1 MG/VIAL IM PRN (11:56)
[2020-08-21] MEDS ORDERED: NA CHLORIDE 0.9% 1,000 ML IV SCH (12:00)
[2020-08-21] MEDS ORDERED: INSULIN GLARGINE 100 UNITS/ML SQ SCH (13:00)
[2020-08-21] MEDS ORDERED: INSULIN GLARGINE 100 UNITS/ML SQ ONE (13:15)
[2020-08-21] MEDS ORDERED: NA CHLORIDE 0.9% 1,000 ML ONE (13:16)
--- NOTE | 2020-08-21 15:50 | P.HP ---
Certification for Inpatient Patient admitted to: Observation With expected LOS: <2 Midnights Patient will require the following post-hospital care: None Practitioner: I am a practitioner with admitting privileges, knowledge of patient current condition, hospital course, and medical plan of care. Services: Services provided to patient in accordance with Admission requirements found in Title 42 Section 412.3 of the Code of Federal Regulations Patient History Date of Service: 08/21/20 Reason for admission: Hyperglycemia; hyperosmolar nonketotic syndrome History of Present Illness: Patient is a 75-year-old gentleman who came to the hospital with hyperglycemia. Patient type 2 diabetic on insulin. He normally wears an insulin pump but apparently is been malfunctioning. His blood sugars have been significantly elevated and he is at a hard time bringing them down. He came into the emergency room for further evaluation. His blood sugars have remained in the 400s. He is upset because they are not coming down. He also has stage IV chronic kidney disease. He is post to get his new insulin pump tomorrow but until then he has no way of getting insulin. He will be admitted to the hospital for further evaluation. Allergies rivastigmine [From Exelon] Allergy (Verified 03/15/15 14:20) Anaphylaxis rivastigmine tartrate [From Exelon] Allergy (Verified 03/15/15 14:20) Anaphylaxis No Known Allergies Allergy (Uncoded 01/14/16 21:14) Unknown Home Medications: Aspirin 81 mg PO BEDTIME 05/23/12 Levothyroxine Sodium [Synthroid] 137 mcg PO [id number] 05/23/12 [place]-3 Fatty Acids/Fish Oil [Fish Oil 1,200 mg Softgel] 1 each PO DAILY 05/23/12 Ca Citrate/Mgox/Vit D3/B6/Min [Citracal Plus Tablet] 1 tab PO DAILY 03/15/15 Donepezil [Aricept*] 10 mg PO DAILY 03/15/15 Clopidogrel Bisulfate [Plavix*] 75 mg PO DAILY #30 tablet 03/17/15 Insulin Aspart [Novolog*] 45 units SUBQ DAILY 04/19/15 Atorvastatin Calcium [Lipitor*] 80 mg PO BEDTIME 05/20/16 Isosorbide Mononitrate [Isosorbide Mononitrate ER] 60 mg PO DAILY 05/20/16 Metoprolol Succinate [Toprol Xl*] 75 mg PO DAILY 05/20/16 - Past Medical/Surgical History Diabetic: Yes -: HTN -: Hypothyroid -: hyperlipidemia -: COPD -: IDDM -: [place] 03/15/15 -: L ankle Sx -: Penile implant -: appy -: bilateral knee sx - Family History Mother Medical History: Lung disease, Cancer Notes: Lung CA, COPD - Social History Smoking Status: Never smoker Alcohol use: Yes CD- Drugs: No Caffeine use: Yes Review of Systems 10-point ROS is otherwise unremarkable Physical Examination - Vital Signs Temperature: 99 F Blood Pressure: 140/70 Pulse: 80 Respirations: 18 Pulse Ox (%): 96 - Physical Exam General: Alert, In no apparent distress, Oriented x3 HEENT: Atraumatic, PERRLA, Mucous membr. moist/pink, EOMI, Sclerae nonicteric Neck: Supple, 2+ carotid pulse no bruit, No LAD, Without JVD or thyroid abnormality Respiratory: Clear to auscultation bilaterally, Normal air movement Cardiovascular: Regular rate/rhythm, Normal S1 S2, Systolic murmur Gastrointestinal: Normal bowel sounds, Soft and benign, Non-distended, No tenderness Musculoskeletal: No clubbing, No tenderness, Swelling Integumentary: Tenderness/swelling, Erythema Neurological: Normal gait, Normal speech, Normal strength at 5/5 x4 extr, Normal tone, Sensation intact, Cranial nerves 3-12 intact Lymphatics: No axilla or inguinal lymphadenopathy - Studies Laboratory Data (last 24 hrs) 08/21/20 08:28: Sodium 131 L, Potassium 5.3 H, BUN 75 H, Creatinine 3.59 H, Glucose 549 H* Assessment & Plan - Problems (Diagnosis) (1) Diabetic hyperosmolar non-ketotic state Status: Acute (2) Chronic kidney disease, stage 4 (severe) Status: Acute (3) Hypertension Onset Date: 05/20/16 Status: Acute - Plan Plan: 1. IV hydration 2. Start patient on long-acting insulin. Give Lantus x1 3. Sliding scale insulin-will modify it to renal failure 4. Check hemoglobin A1c. 5. Patient's ordered his insulin pump and should be here tomorrow at noon 6. GI and DVT prophylaxis Discharge Plan: Home Plan to discharge in: 24 Hours - Advance Directives Does patient have a Living Will: Yes Does patient have a Durable POA for Healthcare: Yes - Code Status/Comfort Care Code Status Assessed: Yes Code Status: Full Code Critical Care: No Time Spent Managing PTS Care (In Minutes): 45
[2020-08-21 16:02] VITALS: O2SAT 98
[2020-08-21] MEDS ORDERED: INSULIN -REGULAR HUMAN 50 UNIT/0.5 ML ML SQ SCH (16:30)
[2020-08-22 11:42] VITALS: BP 140/70; TEMP 99
--- NOTE | 2020-08-22 11:44 | P.DS ---
Discharge Date: 08/21/20 Disposition: AMA-LEFT AGAINST MEDICAL ADVIC Discharge Condition: GOOD Reason for Admission: Hyperglycemia; hyperosmolar nonketotic syndrome - Problems (1) Diabetic hyperosmolar non-ketotic state Status: Acute (2) Chronic kidney disease, stage 4 (severe) Status: Acute (3) Hypertension Onset Date: 05/20/16 Status: Acute Brief History of Present Illness: Patient is a 75-year-old gentleman who came to the hospital with hyperglycemia. Patient type 2 diabetic on insulin. He normally wears an insulin pump but apparently is been malfunctioning. His blood sugars have been significantly elevated and he is at a hard time bringing them down. He came into the emergency room for further evaluation. His blood sugars have remained in the 400s. He is upset because they are not coming down. He also has stage IV chronic kidney disease. He is post to get his new insulin pump tomorrow but until then he has no way of getting insulin. He will be admitted to the hospital for further evaluation. Hospital Course: Patient blood sugars remain elevated. He is upset that he is not being checked on as frequently as he would like. He wants to leave. I did advise him to stay to get his blood sugars stabilized, but he decided he would rather leave against medical advice. If he has to go to the hospital he will go to he stand were his primary doctor is located. Unfortunately, he was upset about the care he was receiving by the nursing staff in the Emergency Room who were very busy with numerous patients. Vital Signs/Physical Exam: Temp Pulse Resp BP Pulse Ox 99 F 80 18 140/70 96 08/22/20 11:42 08/22/20 11:42 08/22/20 11:42 08/22/20 11:42 08/22/20 11:42 General: Alert, In no apparent distress, Oriented x3 Laboratory Data at Discharge: Sodium 131 mmol/L (136-145) L 08/21/20 08:28 Potassium 5.3 mmol/L (3.5-5.1) H 08/21/20 08:28 BUN 75 mg/dL (7-18) H 08/21/20 08:28 Creatinine 3.59 mg/dL (0.55-1.3) H 08/21/20 08:28 Glucose 549 mg/dL (74-106) H* 08/21/20 08:28 Home Medications: Aspirin 81 mg PO BEDTIME 05/23/12 Levothyroxine Sodium [Synthroid] 137 mcg PO [id number] 05/23/12 [place]-3 Fatty Acids/Fish Oil [Fish Oil 1,200 mg Softgel] 1 each PO DAILY 05/23/12 Ca Citrate/Mgox/Vit D3/B6/Min [Citracal Plus Tablet] 1 tab PO DAILY 03/15/15 Donepezil [Aricept*] 10 mg PO DAILY 03/15/15 Clopidogrel Bisulfate [Plavix*] 75 mg PO DAILY #30 tablet 03/17/15 Insulin Aspart [Novolog*] 45 units SUBQ DAILY 04/19/15 Atorvastatin Calcium [Lipitor*] 80 mg PO BEDTIME 05/20/16 Isosorbide Mononitrate [Isosorbide Mononitrate ER] 60 mg PO DAILY 05/20/16 Metoprolol Succinate [Toprol Xl*] 75 mg PO DAILY 05/20/16 Patient Discharge Instructions: Patient has left against medical advice. If his blood sugar remained elevated he needs to go back to the emergency room immediately. Diet: ADA Activity: Fall precautions Followup: NONE,NONE [Primary Care Provider] - Time spent managing pt's care (in minutes): 25
== END 2020-08-21 16:32 | disposition left against medical advice (07) ==
LOC: ER 08:04 → ERHOLD 11:54 → 2ND 15:16
PROVIDERS: ADMIT Hospitalist; ATTEND Hospitalist
DX: E11.00 Type 2 diabetes mellitus with hyperosmolarity without nonketotic hyperglycemic-hyperosmolar coma (NKHHC) (principal); E11.22 Type 2 diabetes mellitus with diabetic chronic kidney disease; I12.9 Hypertensive chronic kidney disease with stage 1 through stage 4 chronic kidney disease, or unspecified chronic kidney disease; N18.4 Chronic kidney disease, stage 4 (severe); Z79.4 Long term (current) use of insulin; Z96.41 Presence of insulin pump (external) (internal); Z53.20 Procedure and treatment not carried out because of patient's decision for unspecified reasons; Z79.82 Long term (current) use of aspirin; Z79.02 Long term (current) use of antithrombotics/antiplatelets; E03.9 Hypothyroidism, unspecified; E78.5 Hyperlipidemia, unspecified; J44.9 Chronic obstructive pulmonary disease, unspecified; I25.2 Old myocardial infarction; K21.9 Gastro-esophageal reflux disease without esophagitis; Z86.74 Personal history of sudden cardiac arrest; E78.00 Pure hypercholesterolemia, unspecified
CPT/HCPCS: 80048; 36415; 82947 ×5; 96374; 99285; J1815; J7040; J7030; G0378 ×2